=== PATIENT | female | born 1935 | race Caucasian/White ===

== ENCOUNTER 2016-05-09 06:48 | Day surgery (SDC) | payer MEDICARE, BC ==
[~2016-05-09 06:48] MED LIST: RINGERS SOLUTION,LACTATED 1,000 ML IV PRN
--- OUTSIDE RECORDS SUMMARY | 2016-05-09 06:53 | XMS REPORT | Continuity of Care Document ---
:1935 Author Organization [facility] ([facility]) Address [address] [place] [address] Phone [phone] Care Team Providers Name Role Phone Javier Gan Primary Care Provider [phone] Source Comments This disclosure is being made pursuant to the Care Everywhere program, applicable federal and state laws, and may not contain all informaitonavailable regarding this patient.[facility] ([facility]) Active Allergies and Adverse Reactions Allergen Noted Date Severity Reactions Comments Celecoxib 08/29/2011 Fatigue Levofloxacin 04/02/2012 Nausea & Vomiting Lisinopril 09/13/2011 OTHER Hair loss Sulfamethoprim Ds 04/02/2012 Nausea & Vomiting Current Medications Prescription Sig. Disp. Refills Start Date End Date Status Cranberry 500 mg Cap Take 2 Caps by mouth Active daily. gemfibrozil 600 mg Take 600 mg by mouth Active tablet 2 times daily. aspirin 81 mg EC Take 81 mg by mouth Active tablet daily. metFORMIN 1,000 mg Take 1,000 mg by Active tablet mouth 2 times daily. FOLIC ACID PO Take 1 mg by mouth Active daily. losartan 50 mg tablet Take 50 mg by mouth Active daily. Indications: HYPERTENSION alendronate 70 mg Take 70 mg by mouth Active tablet every week. cholecalciferol Take 2,000 Units by Active (VITAMIN D3) 1,000 mouth daily. unit tablet atorvastatin 10 mg Take 5 mg by mouth Active tablet every evening. SUPPLY blood glucose by In Vitro route 2 Active meter times daily. SUPPLY BD ULTRA-FINE inject Active CIERA 32 x 4 MM pen subcutaneously 2 needle times daily. psyllium (METAMUCIL Take 3.4 g by mouth Active SF) powder daily. Dilute in at least 8 ounces of water. gabapentin 600 mg Take 600 mg by mouth 01/11/2015 Active tablet 3 times daily glipiZIDE 2.5 mg XL Take 2.5 mg by mouth 02/09/2015 Active tablet daily oxybutynin 10 mg CR Take 10 mg by mouth 01/30/2015 Active tablet daily tamoxifen 20 mg Take 1 tablet (20 mg 90 tablet 3 07/12/2015 Active tablet total) by mouth daily. Active Problems Problem Noted Date Breast cancer 11/14/2011 UTI (urinary tract infection) 09/14/2011 Most Recent Encounters Date Type Specialty Providers Description 02/20/2016 Hospital Encounter Hematology and Donny Melendez Dx: Malignant Oncology OMD neoplasm of left female breast, unspecified site of breast (Primary Dx) Immunizations Name Dates Previously Given Next Due Influenza, unspecified 01/01/2012 Social History Tobacco Use Types Packs/Day Years Used Date Never Smoker Smokeless Tobacco: Never Used Alcohol Use Drinks/Week oz/Week Comments Yes Rare alcohol use. Last Filed Vital Signs Vital Sign Reading Time Taken Blood Pressure 132/80 02/20/2016 5:00 PM [employer] Pulse 79 02/20/2016 5:00 PM [employer] Temperature 36.7 C (98.1 F) 02/20/2016 5:00 PM [employer] Respiratory Rate 24 02/20/2016 5:00 PM [employer] Height 1.626 m (5' 4.02") 05/04/2013 10:58 AM [employer] Weight 77.111 kg (170 lb) 02/20/2016 5:00 PM [employer] Body Mass Index 29.17 02/20/2016 5:00 PM [employer] Oxygen Saturation 95% 02/21/2015 9:53 AM [employer] Plan of Care Health Maintenance Due Date Last Done Comments Hepatitis B Vaccine (1 of 3 - Primary Series) 1935 Tdap Vaccine 09/28/1946 Lipid Disorder Screening 09/28/1953 Td Vaccine 09/28/1953 Colonoscopy 09/28/1985 Zoster Vaccine 1995 Osteoporosis Screening (DXA Bone Density) 09/28/2000 Pneumococcal Vaccine (1 of 2 - PCV13) 09/28/2000 Influenza Vaccine: Seasonal (#1) 10/10/2015 01/01/2012 Results from Last 3 Months Not on file
[2016-05-09] MEDS ORDERED: RINGERS SOLUTION,LACTATED 1,000 ML IV ONE (08:10)
[2016-05-09] MEDS ORDERED: PANTOPRAZOLE SODIUM 40 MG/100 ML PIGGYBACK IV ONE (09:00)
[2016-05-09] MEDS ORDERED: PANTOPRAZOLE SODIUM 40 MG in NORMAL SALINE 100 ML IV ONE ×2 (09:00→10:00)
[2016-05-09 09:28] VITALS: BP 150/71
--- NOTE | 2016-05-09 11:54 | OR ---
Operative Report - Dictated Report Narrative: Operative Report Date of operation 05/09/2016 Preoperative diagnosis: Dysphagia with esophageal stenosis on esophagram Postoperative diagnosis: Hiatal hernia with esophageal narrowing Operation: EGD with gastric biopsy for CLOtest and balloon esophageal dilation to 20 mm Surgeon: Dr Marroquin Anesthesia: RAFITA CALHOUN CRNA Indications for procedure: The patient is an 80-year-old female referred by Dr. Gan. She has a 1 year history of progressive dysphagia for solid foods with a hiatal hernia and esophageal ring demonstrated on esophagram. Findings: Hiatal hernia with esophagitis and esophageal ring with narrowing. Successful dilation to 20 mm Narrative of procedure: The patient was identified preoperatively, and prior to the administration of anesthetic a multidisciplinary timeout was observed With the patient in the recumbent position, a bite-block was placed, intravenous sedation was administered, and the patient's eyes covered with a towel. The flexible fiberoptic gastroscope was advanced into the posterior pharynx which appeared normal. The supraglottic larynx appeared normal. The cords appeared normal, moved well, and opposed in the midline. The scope was advanced under direct vision into the proximal esophagus which appeared normal. The esophagus appeared freely distensible with normal mucosa. The esophageal mucosa appeared normal down to the gastroesophageal junction which evidenced inflammation and edema. The GE junction appeared distensible however there was an esophageal ring just above this corresponding to the area seen on esophagram. The scope was advanced into the stomach which was insufflated with air. There was mild gastric erythema but no claudio ulcers or neoplastic lesions were appreciated including a retroflexed view of the gastric fundus. The pylorus appeared patent. The scope was advanced into the duodenal bulb which appeared normal. The scope was advanced further to the horizontal portion of the duodenum which appeared normal, specifically the villous architecture appeared well preserved and clear bile was present. The scope was slowly withdrawn through the duodenal bulb with confirmation that no active ulcer was present. The scope was withdrawn into the stomach and a biopsy obtained for CLOtest. The biopsy site was seen to be hemostatic. A balloon dilator was deployed in the stomach and withdrawn to lie across the narrowed portion of distal esophagus which was then dilated in stages to 20 mm. The area appeared widely patent. There was a small amount of bleeding which stopped by the end of the procedure. The insufflated air was removed from the stomach, the scope withdrawn from the patient, and the procedure terminated. The patient tolerated the anesthetic and procedure well without complication and was transferred back to the ambulatory surgery area awake and in stable condition. The patient remained stable throughout a period of postoperative observation, was able to tolerate by mouth intake, and was up without assistance. I shared the operative findings with her and her daughter, and she was given copies of the photographs which appear in the medical record. She was given a single dose of Protonix 40 mg IV prior to discharge. She was discharged home with instructions not to engage in hazardous activity today, but may return to normal activity tomorrow. She is to maintain a liquid or soft diet for at least 24 hours and then may advance diet as tolerated. She is to continue medications as listed in the history and physical exam. I made arrangements to contact the patient with CLOtest report and will make further recommendation based upon that result. Reviewed and electronically signed
== END 2016-05-09 06:49 | disposition home or self-care (01) ==
LOC: AMB 06:48
PROVIDERS: ATTEND Surgery
PROC: 0D738ZZ Dilation of Lower Esophagus, Via Natural or Artificial Opening Endoscopic (ICD-10-PCS; 2016-05-09)
PROC: 0DB68ZX Excision of Stomach, Via Natural or Artificial Opening Endoscopic, Diagnostic (ICD-10-PCS; principal; 2016-05-09 08:05)
DX: K44.9 Diaphragmatic hernia without obstruction or gangrene (principal); K22.2 Esophageal obstruction; E11.9 Type 2 diabetes mellitus without complications; I10 Essential (primary) hypertension; E78.5 Hyperlipidemia, unspecified; D64.9 Anemia, unspecified; Z68.28 Body mass index [BMI] 28.0-28.9, adult

== ENCOUNTER 2018-11-09 17:21 | Inpatient (IN) ==
[2018-11-09] MEDS ORDERED: NORMAL SALINE 1,000 ML IV ONE (18:15)
[2018-11-09] MEDS ORDERED: DIATRIZOATE MEGLUMINE, SODIUM 30 ML BTL PO ONE (18:15)
[2018-11-09 18:47] LABS: Hematocrit 31.2 % (37.0-47.0); Hemoglobin 10.2 gm/dL (12.5-16.0); Mean Cell Volume 91.2 fl (78-100); Mean Corpuscular Hemoglobin 29.8 pg (27-31); Mean Corpuscular Hgb Conc 32.7 g/dl (32-36); Mean Platelet Volume 9.6 fl (8-12.5); Neutrophil # 4.1 K/mm3 (1.3-6.0); Neutrophil % 62.4 % (42-75.0); Platelet Count 204 K/mm3 (150-450); Red Blood Count 3.42 M/mm3 (4.2-5.4); Red Cell Distribution Width 13.2 % (11.5-14.0); White Blood Count 6.6 K/mm3 (4.0-10.5)
[2018-11-09 19:00] LABS: Albumin * 3.3 gm/dl (3.4-5.0); Anion Gap 13.6 mmol/L (6.8-13.8); Bilirubin, Total 0.3 mg/dL (0.0-1.1); Ca. Corrected For Albumin 9.3 mg/dL (8.4-10.2); Calcium * 9.1 mg/dL (7.9-10.9); Carbon Dioxide 25.8 mmol/L (24-32.6); Magnesium 1.2 mg/dL (1.2-2.8); Potassium 4.4 mmol/L (3.4-4.6); Total Protein 6.6 gm/dL (6.2-8.2)
[2018-11-09] MEDS ORDERED: ONDANSETRON HCL/PF 2 MG/ML VIAL IV ONE (19:13)
[2018-11-09] MEDS ORDERED: METOCLOPRAMIDE HCL 5 MG/ML VIAL IV ONE (19:53)
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
[2018-11-09 20:18] LABS: Urine Bilirubin Negative (NEGATIVE); Urine Blood Negative /ul (NEGATIVE); Urine Ketone Negative (NEGATIVE); Urine Protein Negative (NEGATIVE); Urine Specific Gravity 1.025 SP.GR. (1.005-1.010); Urine Urobilinogen Normal (NORMAL)
[2018-11-09 20:39] LABS: Urine Appearance Cloudy (CLEAR); Urine Bacteria 3+; Urine Color Yellow; Urine Nitrite Positive (NEGATIVE); Urine RBC None Seen /hpf (0-5); Urine WBC >50 /hpf (0-5)
[2018-11-09] MEDS ORDERED: cefTRIAXone SODIUM 1,000 MG/100 ML BAG IV ONE (21:23)
[2018-11-10] MEDS ORDERED: ONDANSETRON HCL/PF 2 MG/ML VIAL IV PRN ×2 (00:36→05:17)
[2018-11-10] MEDS ORDERED: ACETAMINOPHEN 1,000 MG/100 ML BTL IV PRN (00:37)
[2018-11-10] MEDS ORDERED: HYDROmorphone HCL 1 MG/ML DISP.SYRIN IV PRN (04:05)
[2018-11-10] MEDS: HYDROmorphone HCL 1 MG/ML DISP.SYRIN IV PRN ×3 (04:17→18:58)
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
[2018-11-10] MEDS ORDERED: CEFOXITIN SODIUM 2 GM in DEXTROSE 5 % IN WATER 100 ML IV ONE ×2 (05:11)
[2018-11-10] MEDS ORDERED: POTASSIUM CHLORIDE/D5-0.5NS 1,000 ML IV SCH (05:30)
[2018-11-10] MEDS ORDERED: RINGER'S SOLUTION,LACTATED 1,000 ML IV PRN (06:35)
[2018-11-10] MEDS ORDERED: BUPIVACAINE HCL 50 ML VIAL IJ ONE (06:45)
--- NOTE | 2018-11-10 07:03 | OR ---
Operative Report - Dictated Report Narrative: Date of Service: 11/10/18 Procedure: laparoscopic appendectomy, laparoscopic reduction of hernia and primary hernia repair Pre-procedure diagnosis: acute appendicitis, incarcerated spigelian hernia Post-procedure diagnosis: Acute appendicitis, strangulated spigelian hernia Surgeon: Dr. Quyen Miguel Anesthesia: general Indication for procedure: Lucille is a pleasant 83-year-old female who was admitted through the emergency room for abdominal pain. On CT scan she was found to have an abdominal wall hernia, small bowel obstruction, and acute appendicitis. Description of procedure: After appropriate informed consent was obtained patient was taken to the operating room, placed in the supine position. General anesthesia was achieved. The RN placed a Ruth catheter. The patient was prepped and draped in the usual sterile fashion. A 5 mm periumbilical incision was made, hemostat was used to dissect down to the fascia. A Veress needle was inserted, a saline drop test was performed which was satisfactory. The abdomen was insufflated to 15 mmHg. A 5mm blunt trocar was placed at the umbilicus. The camera was inserted, there was no evidence of a trocar injury. A 12 mm trocar was placed in the left lower quadrant of the abdomen. A 5 mm trocar was placed in the suprapubic region. The spigelian hernia was on the right side of the abdomen. I attempted to reduce the bowel from the hernia. This was very difficult and the hernia did not reduce. After multiple attempts, I decided to move onto the appendectomy. The patient was placed in a head down, rotated left position, to facilitate exposure. The appendix was identified, it appeared consistent with early acute appendicitis. A window was made in the mesoappendix. The 45 mm echelon stapler with the white load was placed across the base of the appendix. There was good hemostasis. The echelon 45 mm stapler with a white load was then placed across the mesoappendix. There was good hemostasis. The appendix was removed through an Endo Catch bag. The abdomen was inspected and the staple lines were intact, with good hemostasis. I then returned to the hernia. The EndoShears were used to enlarge the fascial defect. After enlarging the fascial defect by a few millimeters the hernia reduced. A small segment of bowel measuring approximately 6 cm was somewhat ischemic. It had tiger striping and the mesenteric side was pink, while the lateral aspect was darker. I decided to move on with closing the hernia defect and the 12 mm port site. The 12 mm trocar site was closed with an 0 Vicryl suture using a PMI device. A small incision was made over the hernia. The hernia defect was closed with an 0 Vicryl suture and a PMI device. The bowel was reexamined and was more pink than it was previously. The NG tube was left in place. The abdomen was desufflated. Local anesthetic was injected. The incisions were closed with inverted interrupted 4-0 Monocryl sutures. Mastisol and Steri- Strips were applied. The patient tolerated the procedure well and was transported to the PACU in satisfactory condition. Estimated blood loss: minimal Complications: none Specimens to pathology: appendix Disposition: The patient will be admitted to the floor for observation.
--- NOTE | 2018-11-10 07:08 | ANES ---
Post Anesthesia Discharge - Transfer of Care Transfer of Care handoff given to nurse: Yes - Discharge from PACU Discharge from PACU when meets criteria: Yes - Comfortable at this point
--- NOTE | 2018-11-10 07:22 | ANES ---
Post Anesthesia Assessment - Vital Signs Vitals: Last Vital Signs Temp 37.1 C 11/10/18 07:20 Pulse 79 11/10/18 07:20 Resp 14 11/10/18 07:20 BP 130/56 11/10/18 07:20 Pulse Ox 95 11/10/18 07:20 Airway Patency: Normal - Mental Status Level Of Consciousness: Awake, Alert, Appropriate - Pain Level Pain Score: 0 - N/V Assessment Nausea/Vomiting Presence: None Dehydration:: No
[2018-11-10] MEDS: POTASSIUM CHLORIDE/D5-0.5NS 1,000 ML IV SCH ×2 (08:04→18:34)
--- NOTE | 2018-11-10 09:06 | PN ---
Subjective - Date and Time Seen Date: 11/10/18 Time: 09:00 Subjective Narrative: Patient with past medical history of hypertension, borderline diabetes, previous breast cancer, depression, developed right-sided abdominal pain yesterday morning. She can also feel a lump in that region. She had some diarrhea at home, but had been on ampicillin after a dental procedure (had teeth pulled). She denies fever. She was nauseated here. CT imaging showed a spigelian hernia and possible appendicitis. overnight, she developed worsening abdominal pain, and her surgeon evaluated her early this morning, and she went to the OR for an appendectomy and repair of a strangulated spigelian hernia. On my exam, she reports feeling 200% better. Objective - Review of Systems Generalized/Overall Review: Denies: Fever Respiratory: Denies: Cough, Shortness of Breath Cardiac: Denies: Chest Pain, Edema Abdominal: Reports: Nausea, Diarrhea Genitourinary Symptoms: Reports: No Symptoms Reported Neurological: Reports: Tingling - Postop tingling of her lower legs that she feels like is improving Skin: Reports: No Symptoms Reported - Vitals Vitals: Last Vital Signs Temp 36.3 C 11/10/18 08:08 Pulse 87 11/10/18 08:23 Resp 14 11/10/18 08:23 BP 92/46 11/10/18 08:23 Pulse Ox 97 11/10/18 08:23 - Abnormal Lab Findings Abnormal Lab Findings: Abnormal Lab Results 11/09/18 11/09/18 11/09/18 Range/Units 18:29 18:29 20:14 RBC 3.42 L (4.2-5.4) M/mm3 Hgb 10.2 L (12.5-16.0) gm/dL Hct 31.2 L (37.0-47.0) % Immature Gran % (Auto) 0.60 H (0.001-0.429) % Immature Gran # (Auto) 0.04 H (0.000-0.0310) K/mm3 Monocytes % 9.6 H (0.0-9) % Basophils % 1.1 H (0.0-1.0) % Random Glucose 127 H (70-110) mg/dL ALT 5 L (19-67) U/L Alkaline Phosphatase 46 L (50-170) U/L Albumin 3.3 L (3.4-5.0) gm/dl Urine Nitrate Positive H (NEGATIVE) Ur Leukocyte Esterase 500 H (NEGATIVE) /ul Urine WBC >50 H (0-5) /hpf Urine Bacteria 3+ H (NONE) - Exam Constitutional: Present: Alert, Cooperative, Elderly Respiratory: Present: normal breath sounds, no respiratory distress Cardiovascular/Chest: Present: regular rate, rhythm Abdomen: Present: Normal bowel sounds - NG tube in place, tender Extremity: Absent: lower extremity edema Neurologic: Present: normal mood/affect Cauti Physician Documentation - Urinary Catheter Management Urethral (Ruth) Date of Insertion: 11/10/18 Time of Insertion: 05:45 Assessment/Plan - Problems/Diagnosis (1) Spigelian hernia with bowel obstruction Problem: Acute Narrative: Underwent surgical repair early this morning, and her pain has improved. NG tube in place. (2) Appendicitis Problem: Acute Qualifiers: Appendicitis type: unspecified Qualified Code(s): K37 - Unspecified appendicitis Narrative: Surgical repair early this morning, with improvement in her symptoms. (3) Hypertension Problem: Chronic Qualifiers: Hypertension type: essential hypertension Qualified Code(s): I10 - Essential (primary) hypertension Narrative: Blood pressure is borderline low this morning, which may be related to anesthesia. Will resume home medications when her blood pressure is consistently greater than 140/90. (4) Type 2 diabetes mellitus Problem: Chronic Qualifiers: Diabetes mellitus termite treater insulin use: without termite treater use Diabetes mellitus complication status: with neurologic complications Diabetes mellitus complication detail: with polyneuropathy Qualified Code(s): E11.42 - Type 2 diabetes mellitus with diabetic polyneuropathy Narrative: Her most recent A1c was 6.1%. (5) History of breast cancer Problem: Chronic Narrative: She had previous mastectomy, and is currently on tamoxifen. We will hold the tamoxifen while she is n.p.o.
[2018-11-10] MEDS ORDERED: METOPROLOL TARTRATE 1 MG/ML AMPUL IV ONE (14:52)
[2018-11-11] MEDS: POTASSIUM CHLORIDE/D5-0.5NS 1,000 ML IV SCH ×2 (04:34→17:43)
--- NOTE | 2018-11-11 08:05 | PN ---
Subjective - Date and Time Seen Date: 11/11/18 Time: 07:45 Subjective Narrative: It. There also was some confusion regarding her diet. She still has an NG tube to suction, and the patient reports she has not eaten or drank anything. She has been ambulating to the bathroom, and is unsteady at times. She is not passing gas is not had a bowel movement. She has some significant abdominal tenderness, particularly with movement. She was able to sleep overnight. Objective - Review of Systems Generalized/Overall Review: Denies: Fever Respiratory: Denies: Shortness of Breath Cardiac: Denies: Chest Pain, Edema Abdominal: Reports: Abdominal Pain Genitourinary Symptoms: Reports: No Symptoms Reported Musculoskeletal Complaints: Reports: No Symptoms Reported Neurological: Reports: No Symptoms Reported - Vitals Vitals: Last Vital Signs Temp 37.0 C 11/11/18 07:01 Pulse 94 11/11/18 07:01 Resp 18 11/11/18 07:01 BP 123/51 11/11/18 07:01 Pulse Ox 94 11/11/18 07:01 - Exam Constitutional: Present: Alert, Cooperative, No distress Respiratory: Present: normal breath sounds, no respiratory distress Cardiovascular/Chest: Present: regular rate, rhythm Abdomen: Present: tender, no bowel sounds Extremity: Absent: lower extremity edema - SCDs in place Neurologic: Present: normal mood/affect Eye contact: Present: cooperative Cauti Physician Documentation - Urinary Catheter Management Urethral (Ruth) Date of Insertion: 11/10/18 Time of Insertion: 05:45 Assessment/Plan - Problems/Diagnosis (1) Spigelian hernia with bowel obstruction Problem: Resolved Narrative: Underwent surgical repair 11/10. NG tube in place. She is still having output from her NG, and has significant abdominal pain without bowel sounds, but is only POD #1. She is requiring dilaudid for pain control. (2) Appendicitis Problem: Resolved Qualifiers: Appendicitis type: unspecified Qualified Code(s): K37 - Unspecified appendicitis Narrative: POD#1 appendectomy. (3) Hypertension Problem: Chronic Qualifiers: Hypertension type: essential hypertension Qualified Code(s): I10 - Essential (primary) hypertension Narrative: Much better today. could have been elevated due to pain control. Continue home meds. (4) Type 2 diabetes mellitus Problem: Chronic Qualifiers: Diabetes mellitus terminal worker insulin use: without terminal worker use Diabetes mellitus complication status: with neurologic complications Diabetes mellitus complication detail: with polyneuropathy Qualified Code(s): E11.42 - Type 2 diabetes mellitus with diabetic polyneuropathy (5) History of breast cancer Problem: Chronic
[2018-11-11] MEDS: HYDROmorphone HCL 1 MG/ML DISP.SYRIN IV PRN ×2 (08:37→11:36)
--- NOTE | 2018-11-11 09:13 | PN ---
Dictated Progress Note - Date and Time Seen: Date: 11/11/18 Time: 09:12 - Progress Note Narrative: Patient is feeling much better. She has not had any bowel function yet. She has been belching. Vital Signs - Last Taken Temp 37.0 C 11/11/18 08:13 Pulse 94 11/11/18 08:13 Resp 18 11/11/18 08:13 BP 123/51 11/11/18 08:13 Pulse Ox 94 11/11/18 08:13 Culture 11/09/18 20:20 Urine Culture - Final Urine,Voided Escherichia Coli NAD non labored abd soft, non distended, appropriate TTP IMP: POD #1 lap appy, reduction and primary repair of hernia Plan: cont NG until flatus
[2018-11-11] MEDS: PANTOPRAZOLE SODIUM 40 MG in NORMAL SALINE 100 ML IV SCH (09:59)
[2018-11-11] MEDS: ENOXAPARIN SODIUM 40 MG/0.4 ML SYRG SC SCH (10:05)
[2018-11-11] MEDS: CIPROFLOXACIN IN 5 % DEXTROSE 400 MG/200 ML BAG IV SCH ×2 (10:19→22:12)
[2018-11-12] MEDS: POTASSIUM CHLORIDE/D5-0.5NS 1,000 ML IV SCH ×2 (06:15→15:43)
--- NOTE | 2018-11-12 08:39 | PN ---
Subjective - Date and Time Seen Date: 11/12/18 Time: 08:29 Subjective Narrative: Patient reports improving abdominal pain. She is getting up and walking to the bathroom. Has not yet passed gas. Minimal output via NG. Objective - Review of Systems Generalized/Overall Review: Denies: Fever Respiratory: Denies: Cough, Shortness of Breath Cardiac: Denies: Chest Pain, Edema Abdominal: Reports: Abdominal Pain. Denies: Nausea, Constipation, Diarrhea Genitourinary Symptoms: Reports: No Symptoms Reported Musculoskeletal Complaints: Reports: No Symptoms Reported Neurological: Reports: No Symptoms Reported Skin: Reports: No Symptoms Reported - Vitals Vitals: Last Vital Signs Temp 36.8 C 11/12/18 07:08 Pulse 100 11/12/18 07:08 Resp 20 11/12/18 07:08 BP 135/64 11/12/18 07:08 Pulse Ox 97 11/12/18 07:08 - Exam Constitutional: Present: Alert, Oriented x3, Cooperative, Elderly Respiratory: Present: normal breath sounds, no respiratory distress Cardiovascular/Chest: Present: regular rate, rhythm - borderline tachycardic Abdomen: Present: Normal bowel sounds, tender Extremity: Absent: lower extremity edema Neurologic: Present: normal mood/affect Cauti Physician Documentation - Urinary Catheter Management Urethral (Ruth) Date of Insertion: 11/10/18 Time of Insertion: 05:45 Assessment/Plan - Problems/Diagnosis (1) Spigelian hernia with bowel obstruction Problem: Resolved Narrative: POD #2 laparoscopic appendectomy and laparoscopic reduction of hernia and primary hernia repair. NG tube in place with minimal output. She has bowel sounds and her pain is improving, but has not yet passed gas. Will continue fluids and remain NPO per surgery recommendations. (2) Appendicitis Problem: Resolved Qualifiers: Appendicitis type: unspecified Qualified Code(s): K37 - Unspecified appendicitis (3) Hypertension Problem: Chronic Qualifiers: Hypertension type: essential hypertension Qualified Code(s): I10 - Essential (primary) hypertension Narrative: Well controlled this morning. (4) Type 2 diabetes mellitus Problem: Chronic Qualifiers: Diabetes mellitus half-way insulin use: without half-way use Diabetes mellitus complication status: with neurologic complications Diabetes mellitus complication detail: with polyneuropathy Qualified Code(s): E11.42 - Type 2 diabetes mellitus with diabetic polyneuropathy Narrative: Admission glucose of 126. She does not take diabetic meds at home. (5) History of breast cancer Problem: Chronic Narrative: Is prescribed tamoxifen, but this is held while she's NPO.
[2018-11-12] MEDS: PANTOPRAZOLE SODIUM 40 MG in NORMAL SALINE 100 ML IV SCH (09:10)
[2018-11-12] MEDS: ENOXAPARIN SODIUM 40 MG/0.4 ML SYRG SC SCH (09:10)
[2018-11-12] MEDS: CIPROFLOXACIN IN 5 % DEXTROSE 400 MG/200 ML BAG IV SCH ×2 (09:35→20:45)
--- NOTE | 2018-11-12 13:44 | PN ---
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 still no flatus. still has abd pain, but much improved. Vital Signs - Last Taken Temp 37.1 C 11/12/18 10:40 Pulse 93 11/12/18 10:40 Resp 12 11/12/18 10:40 BP 138/62 11/12/18 10:40 Pulse Ox 95 11/12/18 10:40 NAD abd TTP diffusely non labored Imp: s/p appy reduction and primary repair of hernia Plan: cont ng until flatus protonix lovenox
[2018-11-12] MEDS: DOCUSATE SODIUM 100 MG CAPSULE PO SCH (20:43)
[2018-11-13] MEDS: POTASSIUM CHLORIDE/D5-0.5NS 1,000 ML IV SCH ×2 (02:52→13:08)
--- NOTE | 2018-11-13 07:51 | PN ---
Subjective - Date and Time Seen Date: 11/13/18 Time: 07:45 Subjective Narrative: She reports having a BM, and passing gas since yesterday, but she reports not feeling right this morning. She can't explain why, but she's not hungry. Denies other symptoms. Objective - Review of Systems Generalized/Overall Review: Denies: Fever Respiratory: Denies: Cough, Shortness of Breath Cardiac: Denies: Chest Pain, Edema Abdominal: Reports: Nausea - last night. Denies: Vomiting Genitourinary Symptoms: Denies: Dysuria Musculoskeletal Complaints: Reports: Joint Pain - shoulder pain Neurological: Reports: No Symptoms Reported Skin: Reports: No Symptoms Reported - Vitals Vitals: Last Vital Signs Temp 37.3 C 11/13/18 07:16 Pulse 91 11/13/18 07:16 Resp 12 11/13/18 07:16 BP 153/64 H 11/13/18 07:16 Pulse Ox 96 11/13/18 07:16 - Exam Constitutional: Present: Alert, Oriented x3, Cooperative, Elderly Respiratory: Present: normal breath sounds, no respiratory distress. Absent: crackles, rhonchi, wheezing Cardiovascular/Chest: Present: regular rate, rhythm Abdomen: Present: Normal bowel sounds - NG in left nare, soft Extremity: Absent: lower extremity edema Neurologic: Present: normal mood/affect Cauti Physician Documentation - Urinary Catheter Management Urethral (Ruth) Date of Insertion: 11/10/18 Time of Insertion: 05:45 Assessment/Plan - Problems/Diagnosis (1) Anemia Problem: Acute Narrative: Will administer one U PRBC since she is symptomatic, "not feeling right." No active signs of blood loss, and her surgery did not have significant blood loss. She had teeth pulled 2 weeks ago, and has been on a soft diet since then, so her nutrition could be contributing. CMP is still pending, but if she has developed renal insufficiency, that could also be a source. Will check H&H one hour post transfusion. (2) Spigelian hernia with bowel obstruction Problem: Resolved Narrative: POD #3 laparoscopic appendectomy and laparoscopic reduction of hernia and primary hernia repair. She is passing gas and had a BM. Her abdominal pain is improving. She is progressing well from her surgery in that regard. (3) Appendicitis Problem: Resolved Qualifiers: Appendicitis type: unspecified Qualified Code(s): K37 - Unspecified appendicitis (4) Hypertension Problem: Chronic Qualifiers: Hypertension type: essential hypertension Qualified Code(s): I10 - Essential (primary) hypertension Narrative: BP has been mildly elevated this morning. No aggressive treatment needed. Will resume her home cozaar tomorrow. (5) Type 2 diabetes mellitus Problem: Chronic Qualifiers: Diabetes mellitus mcfp insulin use: without mcfp use Diabetes mellitus complication status: with neurologic complications Diabetes mellitus complication detail: with polyneuropathy Qualified Code(s): E11.42 - Type 2 diabetes mellitus with diabetic polyneuropathy Narrative: She is diet controlled. Admission glucose of 127. CMP pending. (6) History of breast cancer Problem: Chronic Narrative: Will resume tamoxifen when her appetite is restored. Had been held when she was NPO.
[2018-11-13 08:55] LABS: Mean Cell Volume 91.3 fl (78-100); Mean Corpuscular Hemoglobin 29.9 pg (27-31); Mean Corpuscular Hgb Conc 32.7 g/dl (32-36); Mean Platelet Volume 9.2 fl (8-12.5); Neutrophil # 7.4 K/mm3 (1.3-6.0); Neutrophil % 76.8 % (42-75.0); Platelet Count 219 K/mm3 (150-450); Red Blood Count 2.41 M/mm3 (4.2-5.4); Red Cell Distribution Width 13.1 % (11.5-14.0); White Blood Count 9.7 K/mm3 (4.0-10.5)
[2018-11-13 08:58] LABS: Hemoglobin 7.2 gm/dL (12.5-16.0)
[2018-11-13] MEDS: PANTOPRAZOLE SODIUM 40 MG in NORMAL SALINE 100 ML IV SCH (08:58)
[2018-11-13] MEDS: ENOXAPARIN SODIUM 40 MG/0.4 ML SYRG SC SCH (08:59)
[2018-11-13] MEDS: DOCUSATE SODIUM 100 MG CAPSULE PO SCH ×2 (09:01→20:20)
--- NOTE | 2018-11-13 09:01 | PN ---
Dictated Progress Note - Date and Time Seen: Date: 11/13/18 Time: 08:59 - Progress Note Narrative: Pt is not feeling right today. Having bowel function. No n/v. Wants to get up and move and thinks she will feel better. Vital Signs - Last Taken Temp 37.3 C 11/13/18 07:16 Pulse 91 11/13/18 07:16 Resp 12 11/13/18 07:16 BP 153/64 H 11/13/18 07:16 Pulse Ox 96 11/13/18 07:16 NAD abd soft, non distended, min TTP non labored respirations Imp: s/p appy, reduction of hernia and primary repair anemia Plan: blood transfusion NG dcd await advancing diet
[2018-11-13 09:11] LABS: Albumin * 2.2 gm/dl (3.4-5.0); Anion Gap 13.1 mmol/L (6.8-13.8); BUN/Creatinine Ratio 4.8 (9.0-21.6); Bilirubin, Total 0.4 mg/dL (0.0-1.1); Ca. Corrected For Albumin 8.8 mg/dL (8.4-10.2); Calcium * 7.7 mg/dL (7.9-10.9); Carbon Dioxide 22.8 mmol/L (24-32.6); Potassium 3.9 mmol/L (3.4-4.6); Total Protein 5.6 gm/dL (6.2-8.2)
[2018-11-13] MEDS: CIPROFLOXACIN IN 5 % DEXTROSE 400 MG/200 ML BAG IV SCH ×2 (09:41→21:08)
[2018-11-13 15:22] LABS: Hematocrit 24.1 % (37.0-47.0); Hemoglobin 8.2 gm/dL (12.5-16.0)
[2018-11-13] MEDS: HYDROcodone/ACETAMINOPHEN 1 EACH TABLET PO PRN ×2 (16:30→22:36)
[2018-11-14 05:34] LABS: Hemoglobin 8.1 gm/dL (12.5-16.0); Mean Cell Volume 89.9 fl (78-100); Mean Corpuscular Hemoglobin 30.3 pg (27-31); Mean Corpuscular Hgb Conc 33.8 g/dl (32-36); Mean Platelet Volume 9.2 fl (8-12.5); Neutrophil # 4.7 K/mm3 (1.3-6.0); Neutrophil % 62.7 % (42-75.0); Platelet Count 211 K/mm3 (150-450); Red Blood Count 2.67 M/mm3 (4.2-5.4); Red Cell Distribution Width 13.1 % (11.5-14.0); White Blood Count 7.4 K/mm3 (4.0-10.5)
[2018-11-14] MEDS: DOCUSATE SODIUM 100 MG CAPSULE PO SCH (08:49)
[2018-11-14] MEDS: ENOXAPARIN SODIUM 40 MG/0.4 ML SYRG SC SCH (08:49)
[2018-11-14] MEDS: PANTOPRAZOLE SODIUM 40 MG in NORMAL SALINE 100 ML IV SCH (08:52)
[2018-11-14] MEDS ORDERED: LOSARTAN POTASSIUM 50 MG TABLET PO SCH (09:00)
--- NOTE | 2018-11-14 09:05 | PN ---
Dictated Progress Note - Date and Time Seen: Date: 11/14/18 Time: 09:04 - Progress Note Narrative: doing well, still having bf. No n/v. Would like more to eat. Feels better after blood. Vital Signs - Last Taken Temp 37.1 C 11/14/18 06:15 Pulse 81 11/14/18 08:48 Resp 12 11/14/18 06:15 BP 142/62 11/14/18 08:48 Pulse Ox 96 11/14/18 06:15 Abnormal/Pending Laboratory Last 24 HRS 11/14/18 11/13/18 11/13/18 05:20 15:15 09:36 RBC 2.67 L Hgb 8.1 L 8.2 L Hct 24.0 L 24.1 L Immature Gran % (Auto) 2.00 H Immature Gran # (Auto) 0.15 H Lymphocytes % 18.8 L Monocytes % 13.0 H Lymphocytes # 1.39 L Carbon Dioxide BUN/Creatinine Ratio Random Glucose Calcium ALT Alkaline Phosphatase Total Protein Albumin Crossmatch See Detail 11/13/18 08:44 RBC Hgb Hct Immature Gran % (Auto) Immature Gran # (Auto) Lymphocytes % Monocytes % Lymphocytes # Carbon Dioxide 22.8 L BUN/Creatinine Ratio 4.8 L Random Glucose 194 H Calcium 7.7 L ALT 4 L Alkaline Phosphatase 42 L Total Protein 5.6 L Albumin 2.2 L Crossmatch NAD non labored abd soft, non distended, min TTP IMP: s/p appy, hernia reduction and primary repair Plan: advance diet
[2018-11-14] MEDS: CIPROFLOXACIN IN 5 % DEXTROSE 400 MG/200 ML BAG IV SCH (09:17)
[2018-11-14] MEDS: HYDROcodone/ACETAMINOPHEN 1 EACH TABLET PO PRN (11:11)
[2018-11-14 14:06] VITALS: BP 161/69
--- NOTE | 2018-11-14 14:33 | DS ---
(1) Anemia Problem: Acute (2) Spigelian hernia with bowel obstruction Problem: Resolved (3) Appendicitis Problem: Resolved Qualifiers: Appendicitis type: unspecified Qualified Code(s): K37 - Unspecified kayleen endicitis (4) Hypertension Problem: Chronic Qualifiers: Hypertension type: essential hypertension Qualified Code(s): I10 - Essential (primary) hypertension (5) Type 2 diabetes mellitus Problem: Chronic Qualifiers: Diabetes mellitus fdc insulin use: without fdc use Diabetes mellitus complication status: with neurologic complications Diabetes mellitus complication detail: with polyneuropathy Qualified Code(s): E11.42 - Type 2 diabetes mellitus with diabetic polyneuropathy (6) History of breast cancer Problem: Chronic (7) Weight loss Problem: Chronic Date of Discharge:: 11/14/18 Description of Stay: Patient with past medical history of hypertension, borderline diabetes, previous breast cancer, depression, developed right-sided abdominal pain the morning of admission. She could also feel a lump in that region. She had some diarrhea at home, but had been on ampicillin after a dental procedure (had teeth pulled). She denies fever. She was nauseated here. CT imaging showed a spigelian hernia and possible appendicitis. overnight, she developed worsening abdominal pain, and her surgeon evaluated her early this morning, and she went to the OR for an appendectomy and repair of a strangulated spigelian hernia. She had an NG tube in place for approximately 3 days, and it was removed 11/13. She did well with removal, and tolerated a liquid diet. She had teeth pulled a couple of weeks prior to admission, and is on a mechanical soft diet at baseline. She was able to tolerate her mechanical soft diet the day of discharge. She developed some anemia, possible due to her decreased nutrition. No signs of blood loss during her stay. CBC has been ordered to be done within one week after discharge. Admission urinalysis showed signs of infection, and culture grew e coli. She d id not have urinary symptoms, but since she also had emergency abdominal surgery, she was given cipro, to complete a 5 day course, to end 11/15/18. Procedures Performed: see notes below - laparoscopic appendectomy, laparoscopic reduction of hernia and primary hernia repair Results and Findings: Lab Pending Results 11/09/18 18:29: WBC 6.6, RBC 3.42 L, Hgb 10.2 L, Hct 31.2 L, MCV 91.2, MCH 29.8, MCHC 32.7, RDW 13.2, Plt Count 204, MPV 9.6, Immature Gran % (Auto) 0.60 H, Immature Gran # (Auto) 0.04 H, Neutrophils % 62.4, Lymphocytes % 24.9, Monocytes % 9.6 H, Eosinophils % 1.4, Basophils % 1.1 H, Nucleated RBC % 0.0, Neutrophils # 4.1, Lymphocytes # 1.64, Monocytes # 0.6, Eosinophils # 0.1, Absolute Basophils 0.1 11/09/18 18:29: Sodium 141, Plasma Sodium 141, Potassium 4.4, Chloride 106, Carbon Dioxide 25.8, Anion Gap 13.6, BUN 12, Creatinine 0.80, Est GFR (Non-Af Amer) 73, BUN/Creatinine Ratio 15.0, Random Glucose 127 H, Calcium 9.1, Calcium Adj for Albumin 9.3, Magnesium 1.2, Total Bilirubin 0.3, AST 18, ALT 5 L, Alkaline Phosphatase 46 L, Total Protein 6.6, Albumin 3.3 L, Lipase 238 11/09/18 18:29: Lactic Acid, Venous 1.3 11/09/18 20:14: Urine Color Yellow, Urine Appearance Cloudy, Urine pH 6.0, Ur Specific [place] 1.025, Urine Protein Negative, Urine Glucose (UA) Negative, Urine Ketones Negative, Urine Blood Negative, Urine Nitrate Positive H, Urine Bilirubin Negative, Urine Urobilinogen Normal, Ur Leukocyte Esterase 500 H, Urine RBC None seen, Urine WBC >50 H, Ur Epithelial Cells 0-5, Urine Bacteria 3+ H, Urine Culture Comments Culture to follow 11/10/18 07:10: Pathology Specimen Spec to path 11/13/18 08:44: WBC 9.7, RBC 2.41 L, Hgb 7.2 L* D, Hct 22.0 L* D, MCV 91.3, MCH 29.9, MCHC 32.7, RDW 13.1, Plt Count 219, MPV 9.2, Immature Gran % (Auto) 1.60 H, Immature Gran # (Auto) 0.15 H, Neutrophils % 76.8 H, Lymphocytes % 11.2 L, Monocytes % 8.5, Eosinophils % 1.3, Basophils % 0.6, Nucleated RBC % 0.0, Neutrophils # 7.4 H, Lymphocytes # 1.08 L, Monocytes # 0.8, Eosinophils # 0.1, Absolute Basophils 0.1 11/13/18 08:44: Sodium 137, Plasma Sodium 139, Potassium 3.9, Chloride 105, Carbon Dioxide 22.8 L, Anion Gap 13.1, BUN 3 D, Creatinine 0.62, Est GFR (Non- Af Amer) 98 D, BUN/Creatinine Ratio 4.8 L, Random Glucose 194 H, Calcium 7.7 L, Calcium Adj for Albumin 8.8, Total Bilirubin 0.4, AST 15, ALT 4 L, Alkaline Phosphatase 42 L, Total Protein 5.6 L, Albumin 2.2 L 11/13/18 09:36: Blood Type A Negative, Antibody Screen Negative, Crossmatch See Detail 11/13/18 15:15: Hgb 8.2 L, Hct 24.1 L 11/14/18 05:20: WBC 7.4 D, RBC 2.67 L, Hgb 8.1 L, Hct 24.0 L, MCV 89.9, MCH 30.3, MCHC 33.8, RDW 13.1, Plt Count 211, MPV 9.2, Immature Gran % (Auto) 2.00 H, Immature Gran # (Auto) 0.15 H, Neutrophils % 62.7, Lymphocytes % 18.8 L, Monocytes % 13.0 H, Eosinophils % 3.0, Basophils % 0.5, Nucleated RBC % 0.0, Neutrophils # 4.7, Lymphocytes # 1.39 L, Monocytes # 1.0, Eosinophils # 0.2, Absolute Basophils 0.0 Discharge Location: Home Disposition: Home self-care Condition: Fair Discharge Activity: Activity as tolerated Discharge Diet: Consistent carbs, [facility] soft Referrals: Garett Herrera DO [Primary Care Provider] - One Week Additional Patient Instructions (free text): -Please make TCM appointment unless half-way discharge, or if following up with outside provider. Thank you! Leah @ [phone] or Keyonna at [phone]. Prescriptions (Any new or edited meds): HYDROcodone/ACETAMINOPHEN [[place] 5-325] 2 each PO Q8H PRN #18 tablet PRN Reason: Moderate Pain (Pain Scale 4-6) Complete Home Medications List: Complete Home Medication List: Blood-Glucose Meter [Blood Glucose Monitoring] 1 ea MC DAILY 04/13/16 Calcium/Magnesium/Vit D3 [Calcium 500 mg Tablet] 1 ea PO DAILY 04/13/16 Cholecalciferol (Vitamin D3) [Vitamin D3] 2,000 unit PO DAILY 04/13/16 Cranberry Fruit Extract [Cranberry] 1,000 mg PO DAILY 04/13/16 blood sugar diagnostic strips See Dose Instructions .ROUTE .MEDSUPPLY #100 ea 01/06/18 lancets 28 gauge See Dose Instructions .ROUTE .MEDSUPPLY #100 ea 01/06/18 losartan 50 mg tablet 50 mg PO DAILY #90 tab 06/10/18 oxybutynin chloride ER 10 mg tablet,extended release 24 hr 10 mg PO DAILY #90 tab 06/10/18 folic acid 1 mg tablet 1 mg PO DAILY #90 tab 07/16/18 Aspirin [Aspir-Low] 81 mg PO DAILY 11/09/18 Tamoxifen Citrate 20 mg PO DAILY 11/09/18 Ciprofloxacin HCl [Cipro] 250 mg PO BID #3 tab 11/14/18 Docusate Sodium [Colace] 100 mg PO BID #28 cap 11/14/18 HYDROcodone/ACETAMINOPHEN [[place] 5-325] 2 ea PO Q8H PRN #18 tab 11/14/18 Ondansetron [Zofran Odt] 4 mg PO Q8H PRN #10 tab 11/14/18
== END 2018-11-14 17:30 | disposition home or self-care (01) | DRG 342 ==
LOC: ER 17:21 → MS 17:21 → OBSVTOIN 21:44 → MS 22:47
PROVIDERS: ADMIT Family Medicine; ATTEND Family Medicine
CPT/HCPCS: 36415; 71010; 71045; 74177; 80053; 81001; 83605; 83690; 83735; 85014; 85018; 85025; 86850; 87077; 87086; 87186; 88304; 93005; 96361; 96374; 96375; 99285; J0131; J2405; P9016; Q9963; Q9967